=== PATIENT | male | born 1975 | race Caucasian/White ===

== ENCOUNTER 2020-11-09 08:59 | Emergency (ER) | payer OTHER ==
[2020-11-09] MEDS ORDERED: ETODOLAC500 MG PO (09:46)
== END 2020-11-09 10:21 | disposition home or self-care (01) ==
LOC: FER 08:59
DX: S80.211A Abrasion, right knee, initial encounter (principal); I10 Essential (primary) hypertension; Z98.890 Other specified postprocedural states; Z87.828 Personal history of other (healed) physical injury and trauma; W19.XXXA Unspecified fall, initial encounter; Y92.009 Unspecified place in unspecified non-institutional (private) residence as the place of occurrence of the external cause
CPT/HCPCS: 73560; J1885